=== PATIENT | female | born 1980 | race Caucasian/White ===

== ENCOUNTER → 2020-03-21 14:56 | Outpatient (CLI) | payer OTHER, SELFPAY ==
--- NOTE | ~2020-03-21 | US_ITS ---
EXAMINATION: US thyroid EXAM DATE: 03/21/2020 15:45 INDICATION: Thyroid nodule. TECHNIQUE: Multiple grayscale and Doppler images of the thyroid were obtained (by a technologist who performed the scan) and subsequently reviewed. Individual nodules and recommendations may be reporte d in accordance with TI-RADS system as designated by the 2017 ACR White Paper TI-RADS committee. Comp kalyanson is made to prior examination from 11/14/2018. FINDINGS: The right thyroid lobe measures 4.1 x 1.6 x 1.4 cm, the left measuring 4.4 x 1.2 x 1.3 cm. There is m ildly hypervascular thyroid parenchyma, with relatively homogeneous echogenicity. There is a left thy roid nodule measuring 7 x 5 x 8 mm, category TR 4 nodule unchanged IMPRESSION: Stable left thyroid subcentimeter nodule, likely benign. Return to clinical follow-up a nd repeat imaging if additional palpable abnormality develops. Reviewed, dictated and finalized at location A. IMPRESSION: Stable left thyroid subcentimeter nodule, likely benign. Return t o clinical follow-up and repeat imaging if additional palpable abnormality deve lops.
== END ==
PROVIDERS: Visit Provider Nurse Practitioner
DX: E04.1 Nontoxic single thyroid nodule (principal)
CPT/HCPCS: 76536

== ENCOUNTER → 2020-05-16 15:25 | Outpatient (CLI) | payer OTHER, SELFPAY ==
--- NOTE | ~2020-05-16 | MM_ITS ---
EXAMINATION: MM screening marlon BI w delbert HISTORY: Screening TECHNIQUE: Craniocaudal and mediolateral oblique 3-D tomosynthesis images were obtained and synthetic 2-D images were generated. CAD analysis was submitted and interpreted. COMPARISON: No prior mammogram is available for comparison at this institution. BREAST PARENCHYMAL COMPOSITION: The breasts are extremely dense, which lowers the sensitivity of mamm ography. FINDINGS: There are breast asymmetries in the left breast posteriorly. No mammographic evidence for m alignancy in the right breast. IMPRESSION: 1. Left breast asymmetries. 2. Additional mammographic views and possible breast ultrasound are recommended. BI-RADS Category 0: Incomplete: Needs additional imaging evaluation. Reviewed, dictated and finalized at location A. IMPRESSION: 1. Left breast asymmetries. 2. Additional mammographic views and possible breast ultrasound are recommended . BI-RADS Category 0: Incomplete: Needs additional imaging evaluation.
== END ==
PROVIDERS: Visit Provider Nurse Practitioner
DX: Z12.31 Encounter for screening mammogram for malignant neoplasm of breast (principal); R92.8 Other abnormal and inconclusive findings on diagnostic imaging of breast
CPT/HCPCS: 77063; 77067

== ENCOUNTER → 2020-06-04 08:26 | Outpatient (CLI) | payer OTHER, SELFPAY ==
--- NOTE | ~2020-06-04 | MMUS_ITS ---
EXAMINATION: MM diagnostic mammo unilat LT, US breast LT limited HISTORY: Possible left breast masses on screening mammogram TECHNIQUE: Additional 3-D tomosynthesis images of the left breast were performed and synthetic 2-D im ages were generated. CAD analysis was submitted and interpreted. High resolution limited left breast ultrasound was performed. COMPARISON: 05/16/2020 FINDINGS: MAMMOGRAPHIC FINDINGS: There is a 7 mm oval, obscured, equal density mass in the posterior third of the breast at the 9:00 l ocation 8 cm from the nipple. There is a questionable 6 mm low-density mass in the posterior third of the breast at the 6:00 location 8 cm from the nipple. ULTRASOUND: There is a 12 mm x 5 mm oval, circumscribed, parallel, hypoechoic mass with no posterior features at the 6:00 location 5 cm from the nipple. A 6 mm x 3 mm mass with similar sonographic features is prese nt at the 6:00 location 4 cm from the nipple. A 10 mm x 5 mm mass at the 9:00 location 2 cm from the nipple also demonstrates similar sonographic features. IMPRESSION: 1. Probably benign left breast masses. 2. Recommend 6 month follow-up left diagnostic mammogram and ultrasound. BI-RADS category 3, probably benign findings. Reviewed, dictated and finalized at location A. IMPRESSION: 1. Probably benign left breast masses. 2. Recommend 6 month follow-up left diagnostic mammogram and ultrasound. BI-RADS category 3, probably benign findings.
== END ==
PROVIDERS: Visit Provider Obstetrics & Gynecology Gynecology
DX: R92.8 Other abnormal and inconclusive findings on diagnostic imaging of breast (principal)
CPT/HCPCS: 76642; 77065

== ENCOUNTER 2020-06-29 06:49 | Outpatient (NON) | payer OTHER, SELFPAY ==
[2020-07-01 16:41] LABS: SARS-CoV-2 RNA PCR Negative
== END 2020-06-29 06:50 ==
PROVIDERS: PCP Physician Assistant; Visit Provider Physician Assistant
DX: R51.9 Headache, unspecified (principal); Z20.828 Contact with and (suspected) exposure to other viral communicable diseases
CPT/HCPCS: 87635; C9803; U0003

== ENCOUNTER → 2020-11-18 09:29 | Outpatient (CLI) | payer OTHER, SELFPAY ==
--- NOTE | ~2020-11-18 | MMUS_ITS ---
EXAMINATION: MM diagnostic marlon LT w delbert, US breast LT limited HISTORY: Follow-up left breast mass TECHNIQUE: Additional 3-D tomosynthesis images of the left breast were performed and synthetic 2-D im ages were generated. CAD analysis was submitted and interpreted. High resolution Limited left breast ultrasound was performed. COMPARISON: Comparison to multiple prior studies sequentially, with oldest reviewed study dated 03/2020. BREAST PARENCHYMAL COMPOSITION: The breasts are extremely dense, which lowers the sensitivity of mamm ography. FINDINGS: MAMMOGRAPHIC FINDINGS: There are no suspicious masses, calcifications or architectural distortion. The left breast is stable . ULTRASOUND: Limited left breast ultrasound: At 6:00, 5 cm from the nipple, there is an irregular shaped cystic ma ss measuring 1 cm greatest dimension with mixed posterior attenuation. No internal vascularity. At 6: 00, 4 cm from the nipple, there is a 5 mm complicated cyst. At 9:00, 2 cm from the nipple, there is a n oval hypoechoic mass with low level internal echoes and posterior acoustic enhancement measuring 9 x 8 x 5 mm, unchanged from prior study. IMPRESSION: 1. Changed appearance to complex cystic mass of the left breast at 6:00, 5 cm from the nipple. There appears to be a soft tissue component to a focal area of the wall. Ultrasound-guided left breast biop sy recommended. 2. Ultrasound-guided left breast biopsy recommended. BI-RADS category 4, suspicious findings. Reviewed, dictated and finalized at location A. IMPRESSION: 1. Changed appearance to complex cystic mass of the left breast at 6:00, 5 cm f rom the nipple. There appears to be a soft tissue component to a focal area of the wall. Ultrasound-guided left breast biopsy recommended. 2. Ultrasound-guided left breast biopsy recommended. BI-RADS category 4, suspicious findings.
== END ==
PROVIDERS: Visit Provider Obstetrics & Gynecology Gynecology
DX: R92.8 Other abnormal and inconclusive findings on diagnostic imaging of breast (principal)
CPT/HCPCS: 76642; 77061; 77065; G0279

== ENCOUNTER 2022-12-01 17:45 | Emergency (ER) | payer OTHER, SELFPAY ==
[2022-12-01 17:56] VITALS: BP 120/77; PULSE 130; RESP 16; TEMP 37.3; O2SAT 100
[2022-12-01 17:57] VITALS: BP 120/77; PULSE 130; RESP 16; TEMP 37.3; O2SAT 100
--- NOTE | 2022-12-01 18:31 | ED.GENADULT ---
HPI - General Adult General Chief complaint: Upper Respiratory Infection Stated complaint: bodyache,fever,nausea,body rash Time Seen by Provider: 12/01/22 18:30 Source: patient, family, RN notes reviewed and old records reviewed Mode of arrival: ambulatory Limitations: no limitations History of Present Illness HPI narrative: 42 [facility] complaints of nausea and vomiting starting this evening, has felt achy since last night with progressively having more body aches and fevers up to 101F.. Patient reports that she was recently treated by her PCP for UTI with Macrobid and just completed her antibiotic last night. Patient reports that she wonders if she caught the flu. Patient reports that she did home COVID test last night which was negative,. Patient reports that she has been COVID vaccinated and has had flu shot. Patient states that she is on her menses. Patient reports last dose of Ibuprofen at 1300 today. MD complaint: nausea and vomiting, fevers, body aches Onset (ago): day(s) (since yesterday evening) Severity scale (1-10): 5 Treatments prior to arrival: NSAID and other (theraflu and Ibuprofen at 1300) Related Data Allergies Allergy/AdvReac Type Severity Reaction Status Date / Time No Known Allergies Allergy Verified 12/01/22 18:43 Review of Systems Review of Systems: CONSTITUTIONAL: Reports fever,positive chills, or sweats. EYES: Denies visual changes, redness, or discharge. ENT: Denies rhinorrhea, congestion, sore throat, or otalgia. CARDIOVASCULAR: Denies chest pain, palpitations, or edema. RESPIRATORY: Denies cough or dyspnea. GASTROINTESTINAL: Denies abdominal pain,positive for nausea, vomiting X2 while in clinic, no diarrhea. GENITOURINARY: Denies dysuria or hematuria. SKIN: Denies rash or itching. MUSCULOSKELETAL: Denies back pain, joint pain, or myalgia. NEUROLOGIC: Denies headache, numbness, or weakness. PSYCHIATRIC anxiety or depression, patient previously on antidepressants for one month All systems reviewed & are unremarkable except as noted in HPI and below PMFSH Past Medical History Medical History Abnormal mammogram Thyroid nodule UTI (urinary tract infection) Surgical History Surgical History H/O breast biopsy benign Social History Social History Smoking status: Never smoker Living arrangements: with family Gender identity (if verbalized by the patient): Female Comments At time of signature, agree with nursing past medical, surgical, social and family history. There is no relevant family history pertinent to the presenting complaint Exam Narrative: GENERAL: ill-appearing, well-nourished, and in no acute distress. HEAD: Normocephalic, atraumatic. EYES: PERRLA and EOMI. ENT: Nares clear, no rhinorrhea or epistaxis. Mucous membranes moist.TM's normal, throat pink with no swelling NECK: Supple. no lymphadenopathy CHEST: Clear to auscultation. No respiratory distress.no cough noted able to speak in full sentences, SAO2 100% on room air HEART: Regular rate and rhythm. No murmur heard. Normal peripheral pulses. ABDOMEN: Soft, nontender, nondistended, normal active bowel sounds. EXTREMITIES: Normal range of motion. No edema. SKIN: Warm, dry, no rash. NEURO: No focal deficits. Alert and oriented x3. Course Course Emergency Course: Patient is aware of diagnosis, understands and agrees to treatment plan.? Anticipatory guidance given.? Patient agrees to and is aware of reasons to seek care at the emergency department. Portions of this record may have been created with voice recognition software Level of Care: Express Care Visit Vital Signs Vital signs: Vital Signs Temperature 37.3 C 12/01/22 17:56 Pulse Rate 130 H 12/01/22 17:56 Respiratory Rate 16 12/01/22 17:56 Blood Pressure
[2022-12-01] MEDS: ONDANSETRON HCL ODT 4 MG TABLET SUBLINGUAL (18:55)
== END 2022-12-01 18:57 | disposition short-term general hospital (02) ==
PROVIDERS: Emergency Provider Registered Nurse; PCP Physician Assistant
DX: R50.9 Fever, unspecified (principal); R11.2 Nausea with vomiting, unspecified; Z20.822 Contact with and (suspected) exposure to COVID-19
CPT/HCPCS: 81003; 87426; 87804; 99213; A9270; C9803; G0463

== ENCOUNTER 2022-12-01 19:15 | Emergency (ER) | payer OTHER, SELFPAY ==
--- NOTE | ~2022-12-01 | XR_ITS ---
EXAMINATION: XR chest 1V portable Exam Date/Time: 12/01/2022 22:30 CDT HISTORY: Viral illness Comparison: None available. RESULT: Lines, tubes, and devices: None. Lungs and pleura: Diffuse reticulonodular opacities. Cardiomediastinal silhouette: Stable. Other: No acute osseous or upper abdominal finding. IMPRESSION: Pulmonary opacities may represent bronchiolitis, as can be seen with atypical infection, asthma, aspi ration, and small airways disease. Reviewed, dictated and finalized at location K. IMPRESSION: Pulmonary opacities may represent bronchiolitis, as can be seen with atypical i nfection, asthma, aspiration, and small airways disease.
[2022-12-01 19:18] VITALS: BP 113/70; PULSE 98; RESP 18; TEMP 38.3; O2SAT 97
--- NOTE | 2022-12-01 19:30 | ECG_ITS ---
Measurements Intervals [place] Rate: 99 P: 70 [place]: 154 QRS: 62 QRSD: 76 T: 47 QT: 328 QTc: 422 Interpretive Statements SINUS RHYTHM INCOMPLETE RIGHT BUNDLE BRANCH BLOCK NO PREVIOUS ECG AVAILABLE FOR COMPARISON Electronically Signed On 12-02-2022 9:38:30 CDT by Lucas Lamb M.D.
[2022-12-01 19:53] LABS: Basophils Percent Auto 0.1 % (0.2-1.2); Eosinophils Absolute Auto 0.2 K/mm3 (0-0.3); Eosinophils Percent Auto 1.1 % (0-4.4); Hematocrit 41.4 % (37.0-47.0); Hemoglobin 13.9 g/dL (12.0-15.0); Immature Granulocyte Absolute 0.09 K/mm3 (0.00-0.031); Immature Granulocyte Percent A 0.6 % (0-0.5); Lymphocytes Absolute Auto 0.17 K/mm3 (0.9-3.2); Lymphocytes Percent Auto 1.1 % (18.3-44.2); Mean Corpuscular HGB Conc 33.6 g/dl (32-36); Mean Corpuscular Hemoglobin 32.3 pg (26-34); Mean Corpuscular Volume 96.1 fl (80-100); Mean Platelet Volume 10.9 fl (7.4-10.4); Monocytes Percent Auto 5.9 % (2.6-8.5); Neutrophils Absolute Auto 14.8 K/mm3 (1.3-6.7); Neutrophils Percent Auto 91.2 % (45.5-73.1); Platelet Count Result 284 k/mm3 (150-375); Red Blood Count 4.31 M/mm3 (4.2-5.4); Red Cell Distribution Width 12.5 % (11.5-14.5); White Blood Count 16.2 K/mm3 (4.5-10.0)
[2022-12-01 20:04] LABS: Partial Thromboplastin Time 26.5 SECONDS (22.3-36.8); Prothrombin Time 13.2 Seconds (11.1-14.7)
[2022-12-01 20:08] LABS: Alanine Aminotransferase 16 U/L (6-35); Albumin Level 4.7 g/dL (3.5-5.1); Alkaline Phosphatase 83 U/L (38-126); Anion Gap 8 mmol/L (8-16); Aspartate Amino Transferase 24 U/L (14-36); Bilirubin,Total 0.9 mg/dL (0.2-1.3); Blood Urea Nitrogen 10 mg/dL (7-17); Calcium 8.7 mg/dL (8.4-10.2); Carbon Dioxide 28 mmol/L (22-30); Chloride 98 mmol/L (98-107); Estimated CRCL calculation 95 ml/min; Estimated Glomerular Filt Rate > 60; Glucose 143 mg/dL (65-110); Lipase 48 U/L (23-300); Potassium 3.7 mmol/L (3.4-5.0); Sodium 134 mmol/L (137-145)
[2022-12-01 20:49] LABS: Strep Group A RT-PCR NOT DETECTED (Negative)
[2022-12-01 20:54] LABS: Influenza A QL RT-PCR Negative (Negative); Influenza B QL RT-PCR Negative (Negative); SARS-CoV-2 RNA PCR Negative (Negative)
[2022-12-01 21:12] LABS: Appearance Urine Clear (Clear); Bacteria Urine None Seen /hpf; Bilirubin Urine Negative (Negative); Blood Urine Negative (Negative); Color Urine Yellow (Yellow); Glucose Urine UA Negative (Negative); Ketones Urine Trace mg/dL (Negative); Leukocyte Esterase Ur Trace LEU/UL (Negative); Need Manual Microscopic Reviewed; Nitrate Urine Negative (Negative); Non Pathogenic Casts 0-2; Protein Urine 1+ mg/dL (Negative); Specific Grav Ur 1.019 (1.001-1.035); Squamous Epithelial Cell Urine None seen /hpf (Few); WBC Urine 0-5 /hpf; pH Urine >=9.0 (5.0-9.0)
[2022-12-01 21:14] LABS: Add Urine Microscopic? YES
[2022-12-01] MEDS: ACETAMINOPHEN 500 MG TABLET 1000 MG PO (22:49)
[2022-12-01] MEDS: SODIUM CHLORIDE 0.9% IV 2,000 ML 999 ML IV CONT (22:50)
[2022-12-01 22:55] LABS: Pregnancy On Board Control Positive; Urine Pregnancy Test Negative
[2022-12-01] MEDS: ONDANSETRON INJ 4 MG/2 ML VIAL 8 MG IV PUSH (23:12)
[2022-12-01] MEDS: IBUPROFEN 400 MG TABLET 800 MG PO (23:13)
--- NOTE | 2022-12-01 23:42 | ED.GENADULT ---
HPI - General Adult General Chief complaint: Nausea/Vomiting/Diarrhea Stated complaint: n/v, fever, body aches Time Seen by Provider: 12/01/22 21:39 History of Present Illness HPI narrative: this is a 42-year-old female presenting with 1 day of flu-like symptoms. Patient has been having nausea vomiting diarrhea, body aches. She was seen in urgent care earlier today and sold come the emergency room for further evaluation. Patient denies chest pain, difficulty breathing or abdominal pain. She has recent treated with UTI by Macrobid. She has had a fever 101.5 at home. Related Data Allergies Allergy/AdvReac Type Severity Reaction Status Date / Time No Known Allergies Allergy Verified 12/01/22 18:43 [facility] Past Medical History Medical History Abnormal mammogram Thyroid nodule UTI (urinary tract infection) Surgical History Surgical History H/O breast biopsy benign Social History Social History Smoking status: Never smoker Living arrangements: with family Gender identity (if verbalized by the patient): Female Exam Narrative: APPEARANCE: patient appears uncomfortable Head: atraumatic. EYES: EOMI, NOSE: Atraumatic NECK: Trachea midline RESPIRATORY: No increased rate of breathing, clear to auscultation, speaking in full sentences CARDIOVASCULAR: RRR, no peripheral edema ABDOMINAL: Non-distended, soft nontender no guarding or rebound MUSCULOSKELETAl: No obvious deformities NEURO: Alert. Moving 4/4 extremities SKIN:: Warm, dry. Normal color PSYCHIATRIC: Normal affect Course Vital Signs Vital signs: Vital Signs Temperature 101 F H 12/01/22 19:18 Pulse Rate 98 12/01/22 19:18 Respiratory Rate 18 12/01/22 19:18 Blood Pressure 113/70 12/01/22 19:18 Pulse Oximetry 97 12/01/22 19:18 Temperature 101 F H 12/01/22 19:18 Pulse Rate 98 12/01/22 19:18 Respiratory Rate 18 12/01/22 19:18 Blood Pressure 113/70 12/01/22 19:18 Pulse Oximetry 97 12/01/22 19:18 Medical Decision Making MDM Narrative Medical decision making narrative: -Presentation: 42-year-old female presenting with 1 day of flu-like symptoms. -DDX includes but is not limited to: Viral syndrome, UTI, pneumonia -Co-morbidities complicating care: anxiety -Social determinants of health: patient works as a self-employed counselor lives with her Tay -External Chart Review: none -Hx from independent Sources: Tay bedside -Discussion of Management/Consultants: none -Independent interpretation of studies: CBC showed a white count of 16. Metabolic panels unremarkable. Urinalysis was not indicative of infection. Viral swabs were negative. Chest x-ray showed Pulmonary opacities may represent bronchiolitis, as can be seen with atypical infection, asthma, aspiration, and small airways disease. presentation is consistent with viral syndrome versus atypical pneumonia. She will be given a course of azithromycin to cover for atypical pneumonia. Independent EKG interpretation: Rhythm [sinus], Rate [99], Kelliher -[normal], AL -[normal], QRS [narrow], QTC [normal], T waves -[negative for concerning inversions], ST Segments - [Negative for concerning elevations] Final interpretations: [Normal Sinus Rhythm] - no prolonged QT Dx tests considered but not ordered: -Procedures: -Interventions: 2 L normal saline, Zofran, Motrin, Tylenol -Shared decision making / Disposition: patient's symptoms could be due to an atypical pneumonia vs viral illness. She will be given a course of azithromycin and primary care follow-up. -RX Z-Dg, Motrin, Tylenol, Zofran Vital Signs Vital Signs: Vital Signs Temperature 101 F H 12/01/22 19:18 Pulse Rate 98 12/01/22 19:18 Respiratory Rate 18 12/01/22 19:18 Blood Pressure 113/70 12/01/22 19:18
[2022-12-02] MEDS: AZITHROMYCIN 250 MG TABLET 500 MG PO (00:51)
== END 2022-12-02 01:41 | disposition home or self-care (01) ==
PROVIDERS: Emergency Medicine; Physician Assistant; Emergency Provider Emergency Medicine; PCP Physician Assistant
DX: J18.9 Pneumonia, unspecified organism (principal); Z20.822 Contact with and (suspected) exposure to COVID-19; Z87.440 Personal history of urinary (tract) infections; I45.10 Unspecified right bundle-branch block
CPT/HCPCS: 36415; 71045; 80053; 81001; 81025; 83690; 85025; 85610; 85730; 87636; 87651; 93005; 96360; 96361; 96374; 99284; A9270; J2405; J7030

== ENCOUNTER → 2022-12-09 10:27 | Outpatient (CLI) | payer OTHER, SELFPAY ==
--- NOTE | ~2022-12-09 | XR_ITS ---
Clinical Indication: Pneumonia PA and lateral views of the chest: Comparison: 12/01/2022 Findings: Left nipple shadow noted. The lungs are clear, without evidence of focal consolidation or p leural effusion. Cardiomediastinal silhouette is within normal limits. Bones and soft tissues are un remarkable. Impression: No significant abnormality seen. Reviewed, dictated and finalized at location . Impression: No significant abnormality seen.
== END ==
PROVIDERS: PCP Physician Assistant; Visit Provider Physician Assistant
DX: J18.9 Pneumonia, unspecified organism (principal)
CPT/HCPCS: 71046